=== PATIENT | male | born 1960 | race African-American/Black ===

== ENCOUNTER 2022-03-09 15:42 | Observation (INO) | payer OTHER ==
[2022-03-09 16:11] VITALS: BMI 33.9
[2022-03-09] MEDS ORDERED: ASPIRIN 81 MG CHEWABLE TABLETS PO ONE (17:25)
[2022-03-09] MEDS ORDERED: LABETALOL HCL 5 MG/1 ML (100MG/20 ML VIAL) IVPUSH ONE (17:26)
[2022-03-09] MEDS ORDERED: ASPIRIN 81 MG CHEWABLE TABLETS ONE (17:41)
[2022-03-09 17:47] LABS: BASO % 0.3 % (0-2.0); EOS % 0.8 % (0-4.5); HEMATOCRIT 40.8 % (35.4-49); HEMOGLOBIN 13.5 GM/dL (11.7-16.9); LYMPH % 31.9 % (8-40); MCH 26.1 pg (25.7-33.7); MCHC 33.1 g/dl (32.0-35.9); MEAN CELL VOLUME 78.8 fl (80-96); MEAN PLT VOLUME 9.6 fl (7.5-11.1); MONO % 14.5 % (3.8-10.2); NEUT % 52.5 % (42.8-82.8); PLATELET COUNT 157 10^3/uL (134-434); RBC 5.18 M/mm3 (4.00-5.60); RDW 16.2 % (11.9-15.9); WHITE BLOOD COUNT 5.5 K/mm3 (4.0-10.0)
[2022-03-09 17:53] LABS: INR 0.95 (0.83-1.09); PROTHROMBIN TIME (PATIENT) 10.9 SEC (9.7-13.0)
[2022-03-09 17:56] LABS: ACTIVATED PTT 30.4 SECONDS (25.2-36.5)
[2022-03-09 18:00] LABS: CHLORIDE 107 mmol/L (98-107); SODIUM 143 mmol/L (136-145)
[2022-03-09 18:02] LABS: CALCIUM 8.7 mg/dL (8.5-10.1)
[2022-03-09 18:03] LABS: ALBUMIN 3.6 g/dl (3.4-5.0); ANION GAP 6 MMOL/L (8-16); BLOOD UREA NITROGEN 18.9 mg/dL (7-18); CO2 30 mmol/L (21-32); GLUCOSE,RANDOM 99 mg/dL (74-106)
[2022-03-09 18:06] LABS: CREATININE 1.5 mg/dL (0.55-1.3); SGOT/AST 25 U/L (15-37); SGPT/ALT 27 U/L (13-61)
[2022-03-09 18:08] LABS: BILIRUBIN,TOTAL 0.3 mg/dL (0.2-1)
[2022-03-09 18:10] LABS: ALK PHOS 66 U/L (45-117)
[2022-03-09] MEDS ORDERED: hydrALAZINE HCL 50 MG TABLET (FP) PO ONE (18:13)
[2022-03-09] MEDS ORDERED: LABETALOL HCL 200 MG TABLET (FP) PO ONE (18:13)
[2022-03-09] MEDS ORDERED: POTASSIUM CHLORIDE TABS 20 MEQ TABLET.ER (FP) PO ONE (18:21)
[2022-03-09 18:26] LABS: EPI CELLS 3 /uL (0-25.1); HYALINE CASTS 0 /uL (0-3.1); URINE APPEARANCE CLEAR; URINE BACTERIA 4 /uL (0-1359); URINE BILIRUBIN NEGATIVE (NEGATIVE); URINE COLOR YELLOW; URINE GLUCOSE (UA) NEGATIVE (NEGATIVE); URINE KETONE NEGATIVE (NEGATIVE); URINE LEUK ESTERASE NEGATIVE (NEGATIVE); URINE NITRITE NEGATIVE (NEGATIVE); URINE PROTEIN 1+ (NEGATIVE); URINE RBC 2 /uL (0-23.9); URINE UROBILINOGEN 0.2 mg/dL (0.2-1.0); URINE WBC 1 /uL (0-25.8)
[2022-03-09] MEDS ORDERED: LABETALOL HCL 100 MG TABLET (FP) ONE (18:48)
[2022-03-09] MEDS ORDERED: hydrALAZINE HCL 50 MG TABLET (FP) ONE (18:48)
[2022-03-09] MEDS ORDERED: POTASSIUM CHLORIDE ORAL LIQUID 20 MEQ/15 ML ONE (18:48)
[2022-03-09] MEDS ORDERED: cloNIDine HCL 0.1 MG TABLET PO ONE (19:55)
[2022-03-09] MEDS ORDERED: NICARDIPINE 25 MG in DEXTROSE 5%-WATER - 240 ML IVPB SCH (20:00)
[2022-03-09] MEDS ORDERED: cloNIDine HCL 0.1 MG TABLET ONE (20:19)
[2022-03-09] MEDS: HEPARIN NA (PORCINE) 5,000 UNITS/ML 1ML VIAL SQ SCH (22:04)
[2022-03-10 00:24] LABS: MAGNESIUM 2.2 mg/dL (1.8-2.4)
[2022-03-10 04:36] VITALS: RESP 20
[2022-03-10] MEDS: hydrALAZINE HCL 50 MG TABLET (FP) PO SCH ×2 (06:47→14:01)
[2022-03-10] MEDS: HEPARIN NA (PORCINE) 5,000 UNITS/ML 1ML VIAL SQ SCH ×2 (06:47→14:01)
[2022-03-10 07:48] LABS: INR 1.02 (0.83-1.09); PROTHROMBIN TIME (PATIENT) 11.7 SEC (9.7-13.0)
[2022-03-10 07:50] LABS: ACTIVATED PTT 31.2 SECONDS (25.2-36.5)
[2022-03-10 07:51] LABS: HEMATOCRIT 41.2 % (35.4-49); HEMOGLOBIN 13.6 GM/dL (11.7-16.9); MCH 26.2 pg (25.7-33.7); MCHC 33.1 g/dl (32.0-35.9); MEAN CELL VOLUME 79.2 fl (80-96); MEAN PLT VOLUME 10.3 fl (7.5-11.1); PLATELET COUNT 154 10^3/uL (134-434); RDW 16.5 % (11.9-15.9); WHITE BLOOD COUNT 5.3 K/mm3 (4.0-10.0)
[2022-03-10 08:14] LABS: ALBUMIN 3.7 g/dl (3.4-5.0)
[2022-03-10 08:15] LABS: BLOOD UREA NITROGEN 16.7 mg/dL (7-18); CALCIUM 8.6 mg/dL (8.5-10.1); MAGNESIUM 2.2 mg/dL (1.8-2.4)
[2022-03-10 08:17] LABS: CREATININE 1.4 mg/dL (0.55-1.3); PHOSPHOROUS 2.8 mg/dL (2.5-4.9)
[2022-03-10 08:18] LABS: BILIRUBIN,TOTAL 0.7 mg/dL (0.2-1)
[2022-03-10 08:19] LABS: TOT PROT 6.9 g/dl (6.4-8.2)
[2022-03-10] MEDS ORDERED: POTASSIUM CHLORIDE TABS 20 MEQ TABLET.ER (FP) PO ONE (08:26)
[2022-03-10] MEDS ORDERED: FUROSEMIDE 40 MG TABLET (FP) PO SCH (10:00)
[2022-03-10] MEDS ORDERED: ASPIRIN COATED 81 MG TABLET.EC PO SCH (10:00)
[2022-03-10] MEDS ORDERED: FLU VACC QS2022-23(6MOS UP)/PF 60 MCG/0.5 ML SYRINGE IM ONE (10:00)
[2022-03-10] MEDS ORDERED: LOSARTAN 50MG/HCTZ 12.5MG 1 TAB PO SCH (10:00)
[2022-03-10] MEDS ORDERED: cloNIDine HCL 0.1 MG TABLET PO SCH (11:30)
[2022-03-10 14:57] VITALS: BP 131/76; PULSE 66; TEMP 98.2
[2022-03-10] MEDS ORDERED: ATORVASTATIN CA 80 MG TABLET (FP) PO SCH (22:00)
== END 2022-03-10 17:46 | disposition home or self-care (01) ==
LOC: JER 15:42 → JERBED 19:43 → J4W 22:40
PROVIDERS: ADMIT Internal Medicine; ATTEND Nurse Practitioner Acute Care
PROC: 3E023GC Introduction of Other Therapeutic Substance into Muscle, Percutaneous Approach (ICD-10-PCS; principal; 2022-03-09)
PROC: 3E0234Z Introduction of Serum, Toxoid and Vaccine into Muscle, Percutaneous Approach (ICD-10-PCS; 2022-03-09)
PROC: 3E033GC Introduction of Other Therapeutic Substance into Peripheral Vein, Percutaneous Approach (ICD-10-PCS; 2022-03-09)
PROC: 3E033GC Introduction of Other Therapeutic Substance into Peripheral Vein, Percutaneous Approach (ICD-10-PCS; 2022-03-09)
DX: I16.1 Hypertensive emergency (principal); Z29.8 Encounter for other specified prophylactic measures; R77.8 Other specified abnormalities of plasma proteins; N18.9 Chronic kidney disease, unspecified; R06.00 Dyspnea, unspecified
CPT/HCPCS: 36415; 71045-TC-FY; 80053; 80061; 81003; 83036; 83735; 83880; 84100; 84443; 84484; 85025; 85027; 85610; 85730; 87086; 93005; 93010; 99285-25; C9803-CS; G0378; J1644; Q2036; U0003; U0005